=== PATIENT | female | born 1955 | race Caucasian/White ===

== ENCOUNTER 2017-08-05 16:24 | Inpatient (IN) | payer OTHER ==
[~2017-08-05] VITALS: Ht 162.6 cm; Wt 77.6 kg
--- NOTE | ~2017-08-05 | 2DMMODE ---
[facility] [address] [place] [address] 2 D/M-MODE ECHOCARDIOGRAM Name: BRANDIE RODRIGUES [facility] Room #: 218-P ADM IN M.R.#: [id number] Admission: 08/05/17 Attend Phys: Dewayne Valencia MD Discharge: Date of : 53 Date of Service: 08/07/17 0914 Report #: [id number] THIS REPORT FOR: //name// APPROVED REPORT Study performed: 08/07/2017 08:27:48 EXAM: Comprehensive 2D, Doppler, and color-flow Echocardiogram Patient Location: Echo lab Room #: 218 Status: routine BSA: 1.88 HR: 103 bpm BP: 127/74 mmHg Other Information Study Quality: Fair Indications Dyspnea Chest Pain 2D Dimensions RVDd: 37.50 mm LVEF(%): 54.50 (>50%) IVSd: 9.80 (7-11mm) LVOT Diam: 20.39 (18-24mm) LVDd: 44.72 mm PWd: 9.47 (7-11mm) Ascending Ao: 29.81 (22-36mm) LVDs: 32.16 (25-40mm) Aortic Root: 30.00 mm IVC: 18.00 mm Ferrari's LVEF: 54.50 % Volumes Left Atrial Volume (Systole) Single Plane 4CH: 24.19 mL Single Plane 2CH: 28.96 mL LA ESV Index: 17.00 mL/m2 Aortic Valve AoV Peak Gautam.: 1.53 m/s AO Peak Gr.: 9.31 mmHg LVOT Max P.87 mmHg LVOT Max V: 1.21 m/s SHRUTHI Vmax: 2.59 cm2 Mitral Valve E/A Ratio: 0.8 MV Decel. Time: 244.86 ms [facility] [place] [address] 2 D/M-MODE ECHOCARDIOGRAM Name: BRANDIE RODRIGUES [facility] Room #: 218-P [facility] IN M.R.#: [id number] Admission: 08/05/17 Attend Phys: Dewayne Valencia MD Discharge: Date of : 53 Date of Service: 08/07/17 0914 Report #: [id number] MV E Max Gautam.: 0.71 m/s MV A Gautam.: 0.91 m/s MV PHT: 71.01 ms IVRT: 101.50 ms Pulmonary Valve PV Peak Gautam.: 1.06 m/s PV Peak Gr.: 4.55 mmHg Pulmonary Vein P Vein S: 0.65 m/s P Vein A: 0.40 m/s P Vein D: 0.29 m/s P Vein A Dur.: 110.7 msec P Vein S/D Ratio: 2.24 Tricuspid Valve TR Peak Gautam.: 3.02 m/s TR Peak Gr.: 36.36 mmHg PA Pressure: 46.00 mmHg Left Ventricle The left ventricle is normal size. There is normal left ventricular wall thickness. The left ventricular systolic function is normal. The left ventricular ejection fraction is within the normal range. LVEF is 55-60%. Grade I - abnormal relaxation pattern. Right Ventricle The right ventricle is normal size. The right ventricular systolic function is normal. Atria The left atrium size is normal. The right atrium size is normal. Aortic Valve The aortic valve is normal in structure. No aortic regurgitation is present. There is no aortic valvular stenosis. Mitral Valve The mitral valve is normal in structure. There is no mitral valve regurgitation noted. No evidence of mitral valve stenosis. Tricuspid Valve The tricuspid valve is normal in structure. There is trace tricuspid regurgitation. Pulmonic Valve The pulmonary valve is normal in structure. There is no pulmonic [facility] [address] [place] [address] 2 D/M-MODE ECHOCARDIOGRAM Name: BRANDIE RODRIGUES [facility] Room #: 218-P [facility] IN [facility]#: [id number] Admission: 08/05/17 Attend Phys: Dewayne Valencia MD Discharge: Date of : 53 Date of Service: 08/07/17 0914 Report #: [id number] valvular regurgitation. Great Vessels The aortic root is normal in size. IVC is normal in size and collapses <50% with inspiration. Pericardium There is no pericardial effusion. <Conclusion> The left ventricle is normal size. There is normal left ventricular wall thickness. The left ventricular systolic function is normal. Grade I - abnormal relaxation pattern. The right ventricle is normal size. The left atrium size is normal. The aortic valve is normal in structure. The mitral valve is normal in structure. There is trace tricuspid regurgitation. <ELECTRONICALLY SIGNED> By: Samuel Watts MD 08/07/17913 3 3 Samuel Watts MD /INF
--- NOTE | ~2017-08-05 | EKG ---
[address] [address] ELECTROCARDIOGRAM REPORT Name: BRANDIE RODRIGUES [facility] Room #: 218- ADM IN M.R.#: [id number] Admission: 08/05/17 Attend Phys: Dewayne Valencia MD Discharge: Date of : 53 Report #: [id number] THIS REPORT FOR: //name// 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
--- NOTE | ~2017-08-05 | EKG ---
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1955 Requested By: Katy Gale Order Number: [id number] MD: aMurice Longoria Measurements Intervals [place] Rate: 91 P: 32 IN: 140 QRS: 2 QRSD: 87 T: 30 QT: 485 QTc: 597 Interpretive Statements Sinus rhythm Abnormal R-wave progression, early transition Prolonged QT interval No previous ECG available for comparison Electronically Signed On 08-07-2017 7:55:43 CDT by Maurice Longoria [email or web address] <ELECTRONICALLY SIGNED> By: Maurice Longoria MD, [facility] 08/07/17 0755 [id number] 37 Maurice Longoria MD, [facility] /EPI
[2017-08-05 16:34] VITALS: BP 116/71
[2017-08-05 17:33] LABS: HEMOGLOBIN 8.1 gm/dL (12.0-15.0)
[2017-08-05 17:35] LABS: MCH 32.3 pg (26.0-34.0); MCHC 36.9 g/dL (28.0-37.0); MCV 87.4 fL (80.0-100.0); RBC 2.52 mil/uL (4.20-5.00); RDW 15.7 % (10.5-14.5)
[2017-08-05 17:38] LABS: WBC 1.8 thou/uL (4.0-11.0)
[2017-08-05 17:42] LABS: ANION GAP 13 mmol/L (7-16); BUN 20 mg/dL (7-18); CALCIUM 9.3 mg/dL (8.5-10.1); CHLORIDE 101 mmol/L (98-107); CO2 26 mmol/L (21-32); CREATININE 0.8 mg/dL (0.6-1.0); GLUCOSE 108 mg/dL (74-106); SODIUM 140 mmol/L (136-145)
[2017-08-05 17:46] LABS: POTASSIUM 3.1 mmol/L (3.5-5.1)
[2017-08-05 17:52] LABS: TROPONIN-I < 0.04 ng/mL (<0.06)
[2017-08-05 18:00] LABS: PLATELET COUNT 32 thou/uL (150-400)
[2017-08-05 18:46] LABS: APTT 24.7 Seconds (24.5-32.8); INR 1.1; PROTIME 11.2 Seconds (9.3-11.4)
[2017-08-05 18:51] LABS: ALBUMIN 4.2 g/dL (3.4-5.0); DIRECT BILIRUBIN 0.2 mg/dL (<0.1-0.3); TOTAL BILIRUBIN 1.2 mg/dL (<0.1-1.0); TOTAL PROTEIN 7.3 g/dL (6.4-8.2)
[2017-08-05 18:54] LABS: ABSOLUTE NEUTROPHILS 0.1 thou/uL (1.4-8.2); BLASTS 2 %
[2017-08-05 18:55] LABS: ANISOCYTOSIS 1+; MICROCYTES 1+; SCHISTOCYTES OCCASIONAL
[2017-08-05] MEDS ORDERED: AMBIEN 5 MG TABL5 M1 PO (19:32)
[2017-08-05] MEDS ORDERED: SERTRALINE HCL50 MG PO (19:33)
[2017-08-05] MEDS ORDERED: LIPITOR 20 MG T20 M1 PO (19:33)
[2017-08-05] MEDS ORDERED: CHLORTHALIDONE25 MG PO (19:34)
[2017-08-05 19:44] LABS: FOLIC ACID 16.2 ng/mL (8.6-58.9)
[2017-08-05 20:46] VITALS: BP 121/73
[2017-08-05 21:43] VITALS: BP 129/67
[2017-08-06 00:03] VITALS: BP 125/63
[2017-08-06 03:50] LABS: MCH 31.6 pg (26.0-34.0); MCHC 36.2 g/dL (28.0-37.0); MCV 87.5 fL (80.0-100.0); RBC 2.51 mil/uL (4.20-5.00); RDW 15.5 % (10.5-14.5); WBC 2.1 thou/uL (4.0-11.0)
[2017-08-06 04:40] VITALS: BP 115/76
[2017-08-06 08:30] VITALS: BP 120/77
[2017-08-06 11:35] VITALS: BP 109/63
[2017-08-06 15:10] VITALS: BP 104/59
[2017-08-06 19:40] VITALS: BP 116/74
[2017-08-07] VITALS (17 sets, daily range): BP systolic 99–127; BP diastolic 61–81
[2017-08-07 04:35] LABS: WBC 4.3 thou/uL (4.0-11.0)
[2017-08-07 04:38] LABS: HEMATOCRIT 21.8 % (37.0-47.0); HEMOGLOBIN 8.3 gm/dL (12.0-15.0); MCH 33.2 pg (26.0-34.0); MCV 87.5 fL (80.0-100.0)
[2017-08-07 05:33] LABS: PLATELET COUNT 13 thou/uL (150-400)
[2017-08-07 09:37] LABS: APTT 31.7 Seconds (24.5-32.8); INR 1.2; PROTIME 12.3 Seconds (9.3-11.4)
[2017-08-07 13:53] LABS: ABSOLUTE NEUTROPHILS 0.6 thou/uL (1.4-8.2)
[2017-08-07 13:56] LABS: BLASTS 19 %
[2017-08-07 13:57] LABS: ANISOCYTOSIS 1+; NUCLEATED RBCS 2 /100WBC; OVALOCYTES 1+
[2017-08-08] VITALS (7 sets, daily range): BP systolic 96–116; BP diastolic 56–77
[2017-08-08 08:52] LABS: ABSOLUTE NEUTROPHILS 0.3 thou/uL (1.4-8.2)
[2017-08-08 08:54] LABS: ABSOLUTE RETIC COUNT 0.0374 10^6/uL; HEMOGLOBIN 6.8 gm/dL (12.0-15.0); MCHC 36.1 g/dL (28.0-37.0); MCV 88.6 fL (80.0-100.0); OBSERVED RETIC COUNT 1.75 % (0.6-2.6); RBC 2.14 mil/uL (4.20-5.00); WBC 7.4 thou/uL (4.0-11.0)
[2017-08-08 08:58] LABS: PLATELET COUNT 11 thou/uL (150-400)
[2017-08-08 09:57] LABS: BLASTS 20 %; METAMYELOCYTES 1 %; NUCLEATED RBCS 5 /100WBC; PROMYELOCYTES 1 %
[2017-08-08 12:09] LABS: URINE BILIRUBIN NEGATIVE (Negative); URINE BLOOD 2+ (Negative); URINE CLARITY CLEAR; URINE COLOR YELLOW; URINE GLUCOSE-RANDOM* NEGATIVE (Negative); URINE KETONES NEGATIVE (Negative); URINE LEUKOCYTES NEGATIVE (Negative); URINE NITRITE NEGATIVE (Negative); URINE PROTEIN (DIPSTICK) 2+ (Negative); URINE UROBILINOGEN 0.2 E.U./dl (0.2-1.0)
[2017-08-08 12:28] LABS: SQUAMOUS >10 Many /LPF (0-3)
[2017-08-08 12:31] LABS: FINE GRANULAR CASTS 0-3 Few /LPF (None Seen)
[2017-08-08 12:32] LABS: HYALINE CASTS 0-3 Few /LPF (None Seen)
[2017-08-08 12:33] LABS: CRYSTALS None Seen /LPF (None Seen); WBC CASTS 0-3 Few /LPF (None Seen)
[2017-08-08 12:36] LABS: URINE RBC 3-10 Few /HPF (0-2)
[2017-08-09 03:29] VITALS: BP 98/59
[2017-08-09 04:06] LABS: HEMATOCRIT 23.2 % (37.0-47.0); HEMOGLOBIN 8.5 gm/dL (12.0-15.0); MCH 32.1 pg (26.0-34.0); MCHC 36.7 g/dL (28.0-37.0); MCV 87.3 fL (80.0-100.0); PLATELET COUNT 36 thou/uL (150-400); RBC 2.66 mil/uL (4.20-5.00); RDW 15.3 % (10.5-14.5); WBC 6.1 thou/uL (4.0-11.0)
[2017-08-09 08:50] VITALS: BP 108/58
[2017-08-09 09:40] LABS: ABSOLUTE NEUTROPHILS 0.4 thou/uL (1.4-8.2); ATYPICAL LYMPHS 5 %; METAMYELOCYTES 2 %
[2017-08-09 09:46] LABS: ANISOCYTOSIS 1+; OVALOCYTES 1+
[2017-08-09 09:47] LABS: NUCLEATED RBCS 1 /100WBC
[2017-08-09 10:01] LABS: BLASTS 42 %
[2017-08-09 11:31] VITALS: BP 99/69
== END 2017-08-09 12:38 | disposition short-term general hospital (02) | DRG 835 ==
LOC: ER 16:24 → EROBS 18:32 → 2N 18:32 → ER 20:47 → 2N 20:47
PROVIDERS: Emergency Medicine; Hospitalist; Internal Medicine Hematology & Oncology
DX: C92.00 Acute myeloblastic leukemia, not having achieved remission (principal); D61.818 Other pancytopenia; E87.6 Hypokalemia; E78.00 Pure hypercholesterolemia, unspecified; Z87.01 Personal history of pneumonia (recurrent); Z87.891 Personal history of nicotine dependence
CPT/HCPCS: 10081